=== PATIENT | female | born 1980 | race Caucasian/White ===

== ENCOUNTER 2020-02-04 14:14 | Day surgery (SDC) | payer OTHER ==
[~2020-02-04] VITALS: Ht 167.6 cm; Wt 101.3 kg
[2020-02-04] MEDS ORDERED: NS 1,000 ML IV SCH (14:26)
[2020-02-04 14:56] LABS: BASO % 0.2 % (0.0-1.0); EOS # 0.1 10^3/uL (0.0-0.5); EOS % 0.7 % (0.0-3.0); HEMATOCRIT 38.7 % (36.0-47.0); HEMOGLOBIN 13.4 g/dl (12.0-15.5); LYMPH # 1.6 10^3/uL (1.5-5.0); MEAN CORPUSCULAR HGB CONC 34.6 g/dl (32.0-36.5); MEAN CORPUSCULAR VOLUME 86.8 fl (80.0-96.0); MONO # 0.6 10^3/uL (0.0-0.8); MONO % 4.6 % (0.0-5.0); NEUTROPHILS % 81.1 % (36.0-66.0); PLATELET COUNT, AUTOMATED 210 10^3/uL (150-450); RED BLOOD COUNT 4.46 10^6/uL (4.00-5.40); WHITE BLOOD COUNT 12.3 10^3/uL (4.0-10.0)
[2020-02-04] MEDS ORDERED: PERC5TAB12 PO (16:01)
[2020-02-04] MEDS ORDERED: IBUP-1022 PO (16:01)
[2020-02-04] MEDS ORDERED: ACETAMINOPHEN 650 MG SUPP As Ordered ONE (16:25)
[2020-02-04] MEDS ORDERED: BUPIVACAINE/EPIN 0.25% 30 ML VIAL As Ordered ONE (16:40)
[2020-02-04] MEDS ORDERED: fentaNYL 100 MCG/2 ML INJECTION (J3010) As Ordered ONE ×2 (16:48→17:50)
[2020-02-04] MEDS ORDERED: dexameTHASONE 4 MG/ML 1ML VIAL (J1100 PER 1MG) As Ordered ONE (16:49)
[2020-02-04] MEDS ORDERED: ROCURONIUM BROMIDE 50 MG/5 ML VIAL As Ordered ONE (16:49)
[2020-02-04] MEDS ORDERED: propofoL 200 MG/20 ML VIAL As Ordered ONE (16:49)
[2020-02-04] MEDS ORDERED: LIDOCAINE 2% INJ 100 MG/5 ML SDV (FOR ANES.) As Ordered ONE (16:49)
[2020-02-04] MEDS ORDERED: MIDAZOLAM INJ 2 MG/2 ML VIAL (J2250) As Ordered ONE (16:49)
[2020-02-04] MEDS ORDERED: SUCCINYLCHOLINE 100 MG/5 ML SYRINGE (J0330) As Ordered ONE (16:55)
[2020-02-04] MEDS ORDERED: SUGAMMADEX SODIUM 500 MG/5 ML VIAL (BRIDION) As Ordered ONE (17:44)
[2020-02-04] MEDS ORDERED: ONDANSETRON 4MG/2ML VIAL (J2405) As Ordered ONE (17:44)
[2020-02-04] MEDS ORDERED: KETOROLAC 60 MG/2 ML VIAL (J1885) As Ordered ONE (18:01)
--- NOTE | 2020-02-04 18:10 | HPE ---
DATE OF ADMISSION: 02/04/2020 This lady was seen in emergency today with history of vaginal bleeding. She is a 39-year-old 4, para 3, whose last menstrual period (LMP) was 12/15/2019. She had some light spotting in December and did a quantitative beta hCG and has a followup with [facility] 02/27/2020. She had some persistent vaginal bleeding, had a scheduled quantitative hCG, which was 27,000 but this morning she had some significant bleeding, more so that she had before. No evidence of pain. Only significant vaginal bleeding. PAST HISTORY: 1. 2004, had a spontaneous vaginal delivery, term male, 7 pounds 14 ounces. 2. 2008, vaginal delivery female, 35 and 5 weeks with premature rupture of membranes (PPROM), 6 pounds 8 ounces. 3. 08/10/2018, vaginal delivery male, 8 pounds 0 ounces, had gestational diabetes at that time with a surrogate delivery. RISK FACTORS: Advanced maternal age (AMA) and presently on ultrasound shows a right ectopic . She has no known allergies. Had a previous polypectomy from the uterus. No medications. FAMILY HISTORY: Mother has metastatic breast cancer at age 63. Her grandmother has primary lung cancer in remission. She is a nonsmoker. Her aunt has breast cancer. diagnosed at age 38. Father is alive well. No sisters. Two brothers alive and well. On examination today, she does not appear in any acute distress. Her quantitative beta hCG is 17,848. Two days ago, it was 27,000. Her hemoglobin is 13.4, hematocrit 38.7 and platelets are 210. Her blood pressure is 133/79, respirations are 18, pulse is 82. The rest of the examination is unremarkable. She is normocephalic. No evidence of shortness of breath, dyspnea on exertion. She has no nausea, vomiting, diarrhea or constipation. She has no rashes, lesions or pruritus. No arthralgia. Her abdomen is soft. Pelvic examination was not performed. A diagnosis by ectopic is a right ovarian mass, approximately 6-7 weeks in size, highly suspicious for right ectopic . Minimal fluid in the cul-de-sac. Has a thickened endometrium, which is appropriate for an ectopic . No intrauterine is seen. The left ovary is within normal limits. sac was seen in the right ovary, approximately 7 weeks 1 day. No heart was noted. Corpus luteum was also seen, 1.4 x 0.9 x 1.4 cm. Left ovary was normal at 2.5 x 1.7 x 1.7. This is probably conclusive for an ectopic on the right side. We discussed the risks and benefits of surgery with the patient. We also discussed medication-induced ectopic chemical induction with methotrexate. The patient expressed concern about such with having three children and wishes to go ahead with definitive surgical intervention. We discussed risks and benefits of surgery including hemorrhage, infection, perforation, , reoperation, the possibility of not only loss of the ectopic , but of the right fallopian tube. The patient expressed understanding of same and signed the consent form. We are awaiting the surgical suite. We were told we have to wait at least one hour, as the patient had lunch and she is presently stable. Intravenous (IV) is started and we are expected in the operating theater in one hour. Both the patient and have no questions. All questions were answered. One hour to answer all questions.
[2020-02-04] MEDS ORDERED: LR 1,000 ML IV SCH (18:45)
[2020-02-04] MEDS ORDERED: KETOROLAC 30 MG/ML VIAL (J1885) IV PRN (18:45)
[2020-02-04] MEDS ORDERED: MORPHINE 2 MG/ML 1ML VIAL (J2270) IV PRN (18:45)
[2020-02-04] MEDS ORDERED: ONDANSETRON 4MG/2ML VIAL (J2405) IV PRN (18:45)
[2020-02-04] MEDS ORDERED: PERCOCET 5MG/325MG TAB PO PRN (18:45)
[2020-02-04] MEDS: fentaNYL 100 MCG/2 ML INJECTION (J3010) IV PRN ×2 (19:16→19:26)
[2020-02-04 20:10] VITALS: BP 113/60
[2020-02-04 20:40] VITALS: BP 116/56
[2020-02-04] MEDS ORDERED: MORPHINE 2 MG/ML 1ML VIAL (J2270) IV ONE (21:00)
[2020-02-04 21:10] VITALS: BP 113/63
[2020-02-05] MEDS ORDERED: IBUPROFEN 800 MG TAB PO SCH (02:30)
--- NOTE | 2020-02-05 07:16 | REP ---
PELVIS ULTRASOUND: Real-time sonographic evaluation of the pelvis performed using transabdominal and endovaginal technique. The uterus measures 8.1 x 5.6 x 6.2 cm. Endometrium is thickened at 23 mm with no endometrial fluid collection or gestational sac seen within the endometrial canal. Uterus is retroverted. Right ovary measures 2.3 x 1.7 x 2.3 cm and contains a small cystic structure 1.4 cm in diameter. The left ovary measures 2.5 x 1.7 x 1.7 cm. Adjacent to the right ovary is a cystic mass which has the appearance of a gestational sac containing a pole. The crown-rump length is 10 mm corresponding to an estimated gestational age of 7 weeks 1 day. No heart motion is detected. Findings are compatible with right-sided ectopic . There is trace free fluid. There is no evidence of torsion of either ovary with duplex Doppler evaluation. IMPRESSION: Findings compatible with right-sided ectopic . Cystic mass adjacent to the right ovary has the appearance of a gestational sac containing a 10 mm pole with no heart motion. Trace free fluid. Electronically Signed by Mark Zaragoza MD 02/05/2020 10:18 A
--- NOTE | 2020-02-06 11:45 | RO ---
DATE OF PROCEDURE: 02/04/2020 PREOPERATIVE DIAGNOSIS: Right ectopic . POSTOPERATIVE DIAGNOSIS: Right ectopic . OPERATION PROPOSED: Operative laparoscopy, excision of right ectopic , possible right salpingectomy. OPERATION PERFORMED: Operative laparoscopy, excision of right ectopic and right salpingectomy. SURGEON: Dr. Den Alcazar. CHANGE MANAGEMENT COORDINATOR: Dr. Moose Myrick for extraction, retraction visualization ANESTHESIA: General plus local anesthetic for intraperitoneal procedures. ESTIMATED BLOOD LOSS: 100 mL DESCRIPTION OF PROCEDURE: After adequate time-out, prepped and draped in the lithotomy position, Munoz catheter in the bladder draining clear urine. Acetaminophen suppository 1300 mg per rectum, sequentials in place. A single-tooth tenaculum was placed on the anterior lip of the cervix. This lady has a large protruding anterior lip and she was bleeding moderately from her endometrium and her ectopic . Uterine elevator was placed in the endocervical canal with a suggestion of adenomyosis. Reprepping and draping small subumbilical incision was made. Veress needle was applied, 3.8 liters of CO2 to a flow rate of 14 to a pressure 15. Direct entry into the abdomen with a 5 mm scope revealed blood in the cul-de-sac, blood anteriorly. The left ovary and tube appeared to be normal. Uterus is retroverted retroflexed. The right ovary appeared to be normal but was fixed down by the right obvious ectopic with the placenta actually growing into the utero-ovarian pedicle and the blood vessels. We put a 12 mm port on the left side, a 5 mm port on the right side and with the harmonic scalpel we removed the right tube and the right ectopic . We then placed it in a bag, brought the bag out through the 12 mm port. Irrigating quite vigorously we found there was some small bleeding spots in the area of the utero-ovarian pedicle and also the ovary, which is where the placenta had attached outside of the tube. There was moderate decidual reaction on the ovary itself. With that done and good irrigation, we found that she had some blood tracking up under the liver and we tried to remove or irrigate as much as we could. Once that was done the final visualization revealed no evidence of bleeding at the operative site. The 12 mm scope port was removed and the fascia was closed in the usual fashion. Then the 3 mm scope was removed and then we deflated slowly and removed the mainstem port. We then put subcuticular stitches in all three areas, Marcaine 0.25% in the skin area skin tapes. Munoz catheter was removed and the patient was sent to recovery in good condition.
== END 2020-02-04 22:20 | disposition home or self-care (01) ==
LOC: M ED 14:14 → ENRESERV 16:11 → M SDC 16:14 → M OBS 20:16 → M SDC 22:20
PROVIDERS: ATTEND Obstetrics & Gynecology
DX: O00.101 Right tubal pregnancy without intrauterine pregnancy (principal)
CPT/HCPCS: 59151; 76801; 76817; 84702; 85025; 86850; 86900; 86901; 88305; 93976; 96374; 96375; 99284; J0330; J1100; J1885; J2250; J2270; J2405; J3010

== ENCOUNTER → 2024-03-02 | Outpatient (CLI) | payer OTHER ==
[~2024-03-02] MED LIST: IBUP-1022 PO; PERC5TAB12 PO
== END ==
LOC: M WHC 13:20
PROVIDERS: ATTEND Nurse Practitioner Primary Care
DX: Z12.31 Encounter for screening mammogram for malignant neoplasm of breast (principal)